=== PATIENT | female | born 1960 | race Caucasian/White ===

== ENCOUNTER → 2021-11-13 | Outpatient (CLI) | payer OTHER ==
[2021-11-13 11:11] LABS: HCT 40.7 % (37.2-46.3); HGB 13.7 g/dL (12.0-15.0); MCH 30.9 pg (27.0-32.0); MCHC 33.7 g/dL (32.0-37.0); MCV 91.9 fL (80.0-97.0); Mean Platelet Volume 9.7 fL (9.5-12.2); NRBC Per 100 WBC 0 /100 WBCS (0.0-0.0); Platelet Count 176 X 10*3/uL (140-440); RBC 4.43 X 10*6/uL (4.10-5.20); RDW 12.1 % (11.5-14.5); WBC 3.88 X 10*3/uL (4.50-10.00)
[2021-11-13 11:47] LABS: African American GFR (CKD) 92.9 (60.0-200.0); Albumin 4.7 g/dL (3.8-4.9); Albumin/Globulin Ratio 2.04 (1.60-3.17); Anion Gap 10.9 mmol/L (10.00-18.00); BUN/Creat Ratio 16.63 Ratio (12.00-20.00); Blood Urea Nitrogen 13.3 mg/dL (9.0-27.0); Calcium 9.7 mg/dL (8.7-10.3); Carbon Dioxide 27.1 mmol/L (20.0-27.5); Globulin 2.3 g/dL (1.6-3.3); Non-African American GFR(CKD) 80.1 (60.0-200.0); Potassium 3.9 mmol/L (3.5-5.5); Total Bilirubin 1.5 mg/dL (0.30-1.20)
[2021-11-13 12:18] LABS: Chol/HDL Ratio 2.05 Ratio; LDL Cholesterol,Direct Reflex 85.9 mg/dL (0.00-129.00)
== END | disposition home or self-care (01) ==
LOC: LABWHC1 08:00
PROVIDERS: ATTEND Internal Medicine
DX: E78.5 Hyperlipidemia, unspecified (principal); E10.9 Type 1 diabetes mellitus without complications
CPT/HCPCS: 36415; 80053; 80061; 83036; 83721; 85027

== ENCOUNTER → 2021-12-11 | Outpatient (CLI) | payer OTHER ==
--- NOTE | 2021-12-14 14:01 | ECHOF ---
Referral Reason:48 Hour; R00.2 Heart palpitations MEASUREMENTS -------- HEIGHT: 162.6 cm WEIGHT: 51.3 kg BP: RVIDd: 3.0 cm (< 3.3) IVSd: 1.1 cm (0.6 - 1.1) LVIDd: 4.1 cm (3.9 - 5.3) LVPWd: 1.0 cm (0.6 - 1.1) IVSs: 1.4 cm LVIDs: 2.5 cm LVPWs: 1.7 cm LAESV Index (A-L): 36.01 ml/m Ao Diam: 2.3 cm (2.0 - 3.7) AV Cusp: 1.6 cm (1.5 - 2.6) LA Diam: 2.4 cm (2.7 - 3.8) MV EXCURSION: 17.081 mm (> 18.000) MV EF SLOPE: 75 mm/s (70 - 150) EPSS: 0.2 cm MV E Gómez: 0.88 m/s MV DecT: 272 ms MV A Gómez: 0.74 m/s MV E/A Ratio: 1.19 RAP: 5.00 mmHg RVSP: 29.40 mmHg FINDINGS -------- Sinus rhythm. This was a technically adequate study. The left ventricular size is normal. Left ventricular wall thickness is normal. Overall left vent ricular systolic function is normal with, an EF between 55 - 60 %. The diastolic filling pattern is normal for the age of the patient 13.39. The right ventricle is normal in size. LA is midly dilated 29-33ml/m2. The right atrial size is normal. Interatrial and interventricular septum intact. The aortic valve is trileaflet and appears structurally normal. There is no evidence of aortic regu rgitation. There is no evidence of aortic stenosis. Mild mitral regurgitation is present. Mild tricuspid regurgitation present. There is no evidence of pulmonary hypertension. The right v entricular systolic pressure, as measured by Doppler, is 29.40mmHg. Trace/mild (physiologic) pulmonic regurgitation. The aortic root size is normal. Normal inferior vena cava with normal inspiratory collapse consistent with estimated right atrial pre ssure of 5 mmHg. There is no pericardial effusion. CONCLUSIONS -------- 1. The left ventricular size is normal. 2. Left ventricular wall thickness is normal. 3. Overall left ventricular systolic function is normal with, an EF between 55 - 60 %. 4. The diastolic filling pattern is normal for the age of the patient 13.39 5. LA is midly dilated 29-33ml/m2. 6. Mild mitral regurgitation is present. 7. Mild tricuspid regurgitation present. 8. Trace/mild (physiologic) pulmonic regurgitation. [employer] OPERATOR: Lisandra Sorto RDCS
== END | disposition home or self-care (01) ==
LOC: RADECHMAIN 07:36
PROVIDERS: ATTEND Internal Medicine
DX: I72.9 Aneurysm of unspecified site (principal); I34.0 Nonrheumatic mitral (valve) insufficiency; I07.1 Rheumatic tricuspid insufficiency
CPT/HCPCS: 93225; 93226; 93306

== ENCOUNTER → 2022-07-13 | Outpatient (CLI) | payer OTHER ==
--- NOTE | 2022-07-13 11:38 | US ---
EXAMINATION TYPE: US abdomen complete DATE OF EXAM: 07/13/2022 COMPARISON: None CLINICAL HISTORY: R1013 EPIGASTRIC PAIN. Patient states having epigastric pain TECHNIQUE: Multiple sonographic images of the abdomen are obtained. FINDINGS: EXAM MEASUREMENTS: Liver Length: 13.2 cm Gallbladder Wall: 0.1 cm Spleen: 8.4 cm Right Kidney: 10.2 x 4.3 x 4.1 cm Left Kidney: 11.2 x 3.9 x 4.5 cm Pancreas: Limited visualization of pancreas Liver: wnl Gallbladder: wnl Evidence for sonographic Fermin's sign: neg CBD: Obscured by overlying bowel gas Spleen: wnl Right Kidney: No hydronephrosis or masses seen Left Kidney: No hydronephrosis or masses seen Upper IVC: wnl Abd Aorta: No AAA visualized at time of exam The liver is homogenous. The intrahepatic portion of the IVC and proximal abdominal aorta are within normal limits. There is no evidence of cholelithiasis. Common bile duct is unremarkable. The visu alized portions of the pancreas are homogenous. The spleen is unremarkable. Kidneys are symmetric a nd free of hydronephrosis. No renal lesions are seen. IMPRESSION: No evidence for acute process.
--- NOTE | 2022-07-13 17:42 | BD ---
EXAMINATION TYPE: Axial Bone Density DATE OF EXAM: 07/13/2022 COMPARISON: NONE CLINICAL HISTORY: 62 years year old Female. ICD-10 CODE: [id number] OSTEOPENIA Height: 63.7 IN Weight: 110 LBS FRAX RISK QUESTIONS: Family History (Parent hip fracture): YES MOTHER History of Fracture in Adulthood: LT TIB/FIB FX AGE 26 Secondary Osteoporosis: 1. Type 1 Diabetes: YES RISK FACTORS HISTORY OF: Active: YES Postmenopausal woman: AGE 51 MEDICATIONS: Additional Medications: CALCIUM, VIT D, SIMVASTATIN, LISINOPRIL, ASPIRIN, PREVACID, INSULIN EXAM MEASUREMENTS: Bone mineral densitometry was performed using the [employer] System. Bone mineral density as measured about the Lumbar spine is: ----- L1-L4(G/cm2): 0.844 T Score Values are as follows: ----- L1: -2.8 ----- L2: -3.0 ----- L3: -2.6 ----- L4: -3.1 ----- L1-L4: -2.8 Bone mineral density BASELINE Bone mineral density about the R hip (g/cm2): 0.816 Bone mineral density about the L hip (g/cm2): 0.772 T Score values are as follows: -----R Neck: -1.6 -----L Neck: -1.9 -----R Total: -1.5 -----L Total: -1.6 Bone mineral density BASELINE FRAX: The graph provided illustrates a 25.9 chance for a major osteoporotic fx and a 2.1 chance for t he hips probability for fx in 10 years time. IMPRESSION: Osteoporosis (T Score less than -2.5). There is increased fracture risk and therapy is usually indicated based on age. Re-Screen 1-2 years. NOTE: T-SCORE=SD OF THE YOUNG ADULT MEAN.
== END | disposition home or self-care (01) ==
LOC: RADUSWWP 06:54
PROVIDERS: ATTEND Internal Medicine
DX: M85.80 Other specified disorders of bone density and structure, unspecified site (principal); R10.13 Epigastric pain
CPT/HCPCS: 76700; 77080

== ENCOUNTER 2022-08-26 06:41 | Day surgery (SDC) | payer OTHER ==
[2022-08-23 14:57] VITALS: BMI 19.2
[2022-08-26] MEDS ORDERED: LIDOCAINE 1% (10MG/ML) FOR IV START INTRADERMA PRN (07:01)
[2022-08-26] MEDS ORDERED: LACTATED RINGERS 1,000 ML IV SCH (07:01)
[2022-08-26 07:16] VITALS: TEMP 97.9
[2022-08-26] MEDS ORDERED: PROPOFOL 10 MG/ML 20 ML VIAL IV ONE (07:30)
[2022-08-26] MEDS ORDERED: LIDOCAINE 2% INJ 20 MG/ML (2 ML VIAL) ONE (07:30)
[2022-08-26 07:33] LABS: Glucose,Whole Blood 148 mg/dL (70-110)
--- NOTE | 2022-08-26 07:53 | P.GSHP ---
History of Present Illness H&P Date: 08/26/22 CHIEF COMPLAINT: Colon screen HISTORY OF PRESENT ILLNESS: The patient is a 62-year-old female who presents for colon screen. Lower endoscopy was offered for further evaluation and management. PAST MEDICAL HISTORY: Please see list. PAST SURGICAL HISTORY: Please see list. MEDICATIONS: Please see list. ALLERGIES: Please see list. SOCIAL HISTORY: No illicit drug use FAMILY HISTORY: No reports of Crohn disease or ulcerative colitis. REVIEW OF ORGAN SYSTEMS: CONSTITUTIONAL: No reports of fevers or chills. PHYSICAL EXAM: VITAL SIGNS: Stable GENERAL: Well-developed pleasant in no acute distress. HEENT: No scleral icterus. Extraocular movements grossly intact. Moist buccal mucosa. NECK: Supple without lymphadenopathy. CHEST: Unlabored respirations. Equal bilateral excursions. CARDIOVASCULAR: Regular rate and rhythm. Distal 2+ pulses. ABDOMEN: Soft, nontender, nondistended. MUSCULOSKELETAL: No clubbing, cyanosis, or edema. ASSESSMENT: 1. Colon screen. PLAN: 1. Recommend proceeding with a lower endoscopy Past Medical History Past Medical History: Diabetes Mellitus, GERD/Reflux Additional Past Medical History / Comment(s): home COVID test neg May 2022- pt had some mild symptoms. (spouse did test positive), hx migraines, leaky heart valve, History of Any Multi-Drug Resistant Organisms: None Reported Past Surgical History: Tonsillectomy Additional Past Surgical History / Comment(s): po carpal tunnel, laparoscopy, po hands trigger finger( x 6) Past Anesthesia/Blood Transfusion Reactions: No Reported Reaction Smoking Status: Never smoker - Past Family History Brother(s) Family Medical History: Cancer, Pulmonary Embolus Additional Family Medical History / Comment(s): colon cancer Medications and Allergies Home Medications Medication Instructions Recorded Confirmed Type Aspirin [Children's Aspirin] 81 mg PO DIRECTED 08/23/22 08/23/22 History Calcium + Vit D 1 tab PO DAILY 08/23/22 08/23/22 History Cholecalciferol [Vitamin D3 (25 25 mcg PO DAILY 08/23/22 08/23/22 History Mcg = 1000 Iu)] Esomeprazole Magnesium [NexIUM] 20 mg PO QAM 08/23/22 08/23/22 History INSULIN LISPRO (For Pump) [humaLOG 0.01 units SQ-PUMP CONTINUOUS 08/23/22 08/23/22 History (For Pump)] Simvastatin [Zocor] 10 mg PO DAILY 08/23/22 08/23/22 History lisinopriL 2.5 mg PO QAM 08/23/22 08/23/22 History Allergies Allergy/AdvReac Type Severity Reaction Status Date / Time No Known Allergies Allergy Verified 08/23/22 14:44 Surgical - Exam Vital Signs Temp Pulse Resp BP Pulse Ox 97.9 F 62 20 149/87 100 08/26/22 07:13 08/26/22 07:13 08/26/22 07:13 08/26/22 07:13 08/26/22 07:13 Results - Labs Abnormal Lab Results - Last 24 Hours (Table) 08/26/22 Range/Units 07:10 POC Glucose (mg/dL) 148 H (70-110) mg/dL
--- NOTE | 2022-08-26 07:58 | P.PCN ---
Date of Procedure: 08/26/22 Description of Procedure: PREOPERATIVE DIAGNOSIS: Personal history of colon polyps Family history malignant colon polyps Colonoscopy screening POSTOPERATIVE DIAGNOSIS: Tubular adenoma cecum OPERATION: Colonoscopy to the ileocecal valve and appendiceal orifice, cecum Colonoscopy with cold forceps biopsy SURGEON: Marina Ortega MD. ANESTHESIA: MAC. INDICATIONS: The patient is an 62-year-old female who presents family history of malignant colon polyps and personal history of colon polyps. Last colonoscopy 5 years. Benefits and risks were described and informed consent was obtained. DESCRIPTION OF PROCEDURE: The patient had undergone Sutab prep. The patient had been brought into the ope rating room and laid in the left lateral decubitus position. After adequate intravenous sedation, the rectum was examined with 2% lidocaine jelly. The prostate was unremarkable. No external hemorrhoids were encountered. The rectal tone was within normal limits. No lesions were palpated in the rectal vault. An Olympus colonoscope was advanced until the cecum, ileocecal valve and appendiceal orifice were clearly viewed. The prep was excellent. No sigmoid diverticulosis was encountered. Colonic polyps were found and removed. No evidence of focal colitis was found. Retroflexion of the scope demonstrated grade 1 internal hemorrhoids without active bleeding or inflammation. The colon was desufflated. The patient had tolerated the procedure well. Withdrawal time was over 6 minutes. FINDINGS: Aronchick preparation quality scale 1 (1-5) Internal hemorrhoids, grade 1 No external hemorrhoids No arteriovenous malformations. No sigmoid diverticulosis Removal of 1 polyps: - Cold forceps biopsy at cecum, 5 mm polyp. No focal colitis. RECOMMENDATIONS: Repeat colonoscopy in 3 years, 2024 Plan - Discharge Summary New Discharge Prescriptions: Continue INSULIN LISPRO (For Pump) [humaLOG (For Pump)] 0.01 units SQ-PUMP CONTINUOUS Aspirin [Children's Aspirin] 81 mg PO DIRECTED lisinopriL 2.5 mg PO QAM Esomeprazole Magnesium [NexIUM] 20 mg PO QAM Cholecalciferol [Vitamin D3 (25 Mcg = 1000 Iu)] 25 mcg PO DAILY Simvastatin [Zocor] 10 mg PO DAILY Calcium + Vit D 1 tab PO DAILY Discharge Medication List Aspirin [Children's Aspirin] 81 mg PO DIRECTED 08/23/22 [History] Calcium + Vit D 1 tab PO DAILY 08/23/22 [History] Cholecalciferol [Vitamin D3 (25 Mcg = 1000 Iu)] 25 mcg PO DAILY 08/23/22 [Histo ry] Esomeprazole Magnesium [NexIUM] 20 mg PO QAM 08/23/22 [History] INSULIN LISPRO (For Pump) [humaLOG (For Pump)] 0.01 units SQ-PUMP CONTINUOUS 08/23/22 [History] Simvastatin [Zocor] 10 mg PO DAILY 08/23/22 [History] lisinopriL 2.5 mg PO QAM 08/23/22 [History] Follow up Appointment(s)/Referral(s): Marina Ortega MD [STAFF PHYSICIAN] - As Needed Patient Instructions/Handouts: *Surgery [facility] - (Anesthesia) Endoscopy Discharge Instructions, Colonoscopy (DC) Activity/Diet/Wound Care/Special Instructions: Repeat colonoscopy in 3 years, 2024 Discharge Disposition: HOME SELF-CARE
[2022-08-26 08:04] VITALS: PULSE 66; RESP 16
[2022-08-26 08:17] VITALS: BP 161/90
== END 2022-08-26 09:07 | disposition home or self-care (01) ==
LOC: ORWHC2ENDO 06:41
PROVIDERS: ATTEND Surgery Plastic and Reconstructive Surgery
DX: Z12.11 Encounter for screening for malignant neoplasm of colon (principal); D12.0 Benign neoplasm of cecum; E11.9 Type 2 diabetes mellitus without complications; K21.9 Gastro-esophageal reflux disease without esophagitis; I38 Endocarditis, valve unspecified; Z90.89 Acquired absence of other organs; Z98.890 Other specified postprocedural states; Z80.0 Family history of malignant neoplasm of digestive organs; Z86.010 Personal history of colon polyps; Z83.6 Family history of other diseases of the respiratory system; Z79.82 Long term (current) use of aspirin; Z79.899 Other long term (current) drug therapy; Z79.4 Long term (current) use of insulin; Z86.69 Personal history of other diseases of the nervous system and sense organs
CPT/HCPCS: 45380; J2704; J2001; 88305

== ENCOUNTER → 2023-02-18 | Outpatient (CLI) | payer OTHER ==
[2023-02-18 11:12] LABS: Anion Gap 12.2 mmol/L (10.00-18.00); Carbon Dioxide 26.8 mmol/L (20.0-27.5); Potassium 3.8 mmol/L (3.5-5.5)
== END | disposition home or self-care (01) ==
LOC: LABWHC1 06:57
PROVIDERS: ATTEND Internal Medicine
DX: E10.65 Type 1 diabetes mellitus with hyperglycemia (principal); M85.80 Other specified disorders of bone density and structure, unspecified site
CPT/HCPCS: 36415; 80051; 82523; 83970; 84443

== ENCOUNTER → 2023-04-14 | Outpatient (CLI) | payer OTHER ==
--- NOTE | 2023-04-14 09:13 | XR ---
EXAMINATION TYPE: XR shoulder complete RT DATE OF EXAM: 04/14/2023 CLINICAL HISTORY: pain TECHNIQUE: Three views of the right shoulder are obtained. COMPARISON: None FINDINGS: There is no acute fracture/dislocation evident. The acromioclavicular and glenohumeral idalia int spaces appear mildly narrowed. The visualized ribs are intact and unremarkable. IMPRESSION: 1. There is no acute fracture or dislocation. ICD 10 NO FRACTURE, INITIAL EVALUATION
== END | disposition home or self-care (01) ==
LOC: RADXRMAIN 08:35
PROVIDERS: ATTEND Family Medicine
DX: M25.511 Pain in right shoulder (principal)

== ENCOUNTER → 2023-07-07 | Outpatient (CLI) | payer OTHER ==
[2023-07-07 11:28] LABS: BUN/Creat Ratio 12.88 Ratio (12.00-20.00); Blood Urea Nitrogen 10.3 mg/dL (9.0-27.0); Calcium 9.7 mg/dL (8.7-10.3); Carbon Dioxide 26.9 mmol/L (21.6-31.8); Chloride 102 mmol/L (96-109); Glucose 88 mg/dL (70-110); Potassium 4.1 mmol/L (3.5-5.5); Sodium 139 mmol/L (135-145)
== END | disposition home or self-care (01) ==
LOC: LABWHC1 07:19
PROVIDERS: ATTEND Internal Medicine Cardiovascular Disease
DX: E10.65 Type 1 diabetes mellitus with hyperglycemia (principal); E10.649 Type 1 diabetes mellitus with hypoglycemia without coma; E10.3293 Type 1 diabetes mellitus with mild nonproliferative diabetic retinopathy without macular edema, bilateral; M85.80 Other specified disorders of bone density and structure, unspecified site; Z79.4 Long term (current) use of insulin; Z96.41 Presence of insulin pump (external) (internal)
CPT/HCPCS: 36415; 80048; 82523

== ENCOUNTER → 2023-08-30 | Outpatient (CLI) | payer OTHER | END | disposition home or self-care (01) | LOC: LABWHC1 12:33 | PROVIDERS: ATTEND Internal Medicine | DX: M81.6 Localized osteoporosis [Lequesne] (principal) | CPT/HCPCS: 36415; 82523; 83937 ==

== ENCOUNTER → 2024-12-20 | Outpatient (CLI) | payer OTHER ==
--- NOTE | 2024-12-20 12:09 | CA ---
Stress Echo Report Lilian Moffett Age: 64 Gender: F : 1960 Exam Date: 12/20/2024 10:22 Exam Location: [facility] Ht (in): 64 Wt (lb): 107 Ordering Physician: Zaheer Valle DO Referring Physician: Zaheer Valle DO Geotechnical Department Manager: DARLENE Technologist Procedure CPT: Indication: R07.89 chest pain ICD-9 Codes: Rhythm: Patient History: Cardiac Medications: NOVALOG, NEXEUM, SIMVASTATIN, LISINOPRIL, CALCIUM CITRATE Medications in past 24 hours: Contrast: N/A Stress Results Protocol: Jesus Total dose(mL): NA Exercise Duration (min:sec): 12:[address] Depression (mm): Angina Score: Rolon Score: METS: 12.5 Resting HR: 74 Resting BP: 137 / 82 Peak HR: 150 Peak BP: 198 / 86 Max Predicted HR: 157 96 % Max Predicted HR Target HR: 133 Double Product: [id number] Stress Summary: BP Response: Reason for Termination: Reached target heart rate or work-load Cardiac Symptoms: NO SYMPTOMS ECG Analysis Resting ECG: Normal sinus rhythm normal axis normal intervals Stress ECG: Patient exercised on Jesus protocol for 12 minutes achieving 85% of predicted maximal heart rate without chest pain or diagnostic ST segment depression Arrhythmia: Echo Analysis Resting Echo: Normal left ventricular size wall motion and systolic function Peak Echo Analysis: Normal hyperdynamic response MEASUREMENTS (Male/Female) Normal Values CONCLUSIONS Excellent exercise tolerance Negative stress test by EKG criteria Negative stress echo Dr. Dario Chen MD (Electronically Signed) Final Date: 20 December 2024 12:08
--- NOTE | 2024-12-24 08:57 | MM ---
Reason for Exam: Screening (asymptomatic). Last mammogram was performed 2 year(s) and 4 month(s) ago. Patient History: Menarche at age 19. First Full-Term at age 39. Late child-bearing (after 30). Postmenopausal. Risk Values: Claudine 5 year model risk: 2.0%. NCI Lifetime model risk: 8.4%. Prior Study Comparison: 12/22/2020 Bilateral Screening Mammogram, [facility]. 08/05/2022 Bilateral Screening Mammogram, [facility]. Tissue Density: The breasts are extremely dense, which lowers the sensitivity of mammography. Findings: Analyzed By CAD. There is no suspicious group of microcalcifications or new suspicious mass in either breast. Overall Assessment: Benign, BI-RAD 2 Management: Screening Mammogram of both breasts in 1 year. . Patient should continue monthly self-breast exams. A clinical breast exam by your physician is recommended on an annual basis. This exam should not preclude additional follow-up of suspicious palpable abnormalities. Note on Claudine scores and lifetime risk: 1. A Claudine score greater than 3% is considered moderate risk. If this is the case, consider specialist referral to assess eligibility for a risk reducing agent. 2. If overall lifetime risk for the development of breast cancer is 20% or higher, the patient may qualify for future screening with alternating mammogram and breast MRI. [facility], , 12/24/2024 8:54 AM. Electronically signed and approved by: Luis Carpenter M.D. Radiologis
== END | disposition home or self-care (01) ==
LOC: RADMAMWWP 09:03
PROVIDERS: ATTEND Internal Medicine
DX: Z12.31 Encounter for screening mammogram for malignant neoplasm of breast (principal); R92.343 Mammographic extreme density, bilateral breasts; R07.89 Other chest pain; Z78.0 Asymptomatic menopausal state
CPT/HCPCS: 77063; 77067; 93351